=== PATIENT | female | born 1995 ===

== ENCOUNTER 2016-11-09 22:48 | Emergency (ER) | payer MEDICAID ==
[2016-11-09 23:21] LABS: URINE COLOR BROWN
[2016-11-09 23:22] LABS: URINE BILIRUBIN SMALL (NEGATIVE); URINE BLOOD LARGE (NEGATIVE); URINE GLUCOSE (UA) NEGATIVE (NEGATIVE); URINE KETONE TRACE mg/dL (NEGATIVE); URINE PH 5.5; URINE PROTEIN >300 mg/dL (NEGATIVE)
[2016-11-09 23:23] LABS: URINE BACTERIA MODERATE /hpf (NONE SEEN); URINE EPITHELIAL CELLS FEW /lpf (FEW); URINE RBC >100 /hpf (0-5)
--- NOTE | 2016-11-09 23:39 | ED Physician Chart ---
Chief Complaint/HPI - Patient Information Date Seen:: 11/09/16 Time Seen:: 23:03 Chief Complaint:: HEMATURIA History of Present Illness:: THIS IS A 20 YO FEMALE WITH BLOODY URINE AND NOT SURE THAT SHE IS NOT . SHE STATES THAT SHE HAS PELVIC WHENEVER SHE URINATES. SHE DENIES FEVER, VOMITING AND DIARRHEA. SHE DENIES ALL OTHER MEDICAL PROBLEMS. SHE DENIES ANY PREVIOUS AND SURGERIES. Allergies:: Allergies Allergy/AdvReac Type Severity Reaction Status Date / Time No Known Allergies Allergy Verified 11/09/16 23:00 Vitals:: Vital Signs - 8 hr 11/09/16 23:00 Temp 98.1 F HR 98 RR 18 BP 110/70 O2 Sat % 99 Historian:: Patient Review:: Nurse's Note Reviewed Review of Systems - Review of Systems General/Constitutional: No fever, No chills, No weight loss, No weakness, No diaphoresis, No edema, No loss of appetite Skin: No skin lesions, No rash, No bruising Head: No headache, No light-headedness Eyes: No loss of vision, No pain, No diplopia ENT: No earache, No nasal drainage, No sore throat, No tinnitus Neck: No neck pain, No swelling, No thyromegaly, No stiffness, No mass noted Cardio Vascular: No chest pain, No palpitations, No PND, No orthopnea, No edema Pulmonary: No SOB, No cough, No sputum, No wheezing GI: No nausea, No vomiting, No diarrhea, No pain, No melena, No hematochezia, No constipation, No hematemesis G/U: No dysuria, No frequency, Hematuria Recreation Instructor: Other (PELVIC PAIN) Musculoskeletal: No bone or joint pain, No back pain, No muscle pain Endocrine: No polyuria, No polydipsia Psychiatric: No prior psych history, No depression, No anxiety, No suicidal ideation Hematopoietic: No bruising, No lymphadenopathy Allergic/Immuno: No urticaria, No angioedema Neurological: No syncope, No focal symptoms, No weakness, No paresthesia, No headache, No seizure, No dizziness, No confusion, No vertigo Past Medical History - Past Medical History Obtainable: Yes Past Medical History: Asthma/COPD Family History: None Social History: Non Smoker, No Alcohol, No Drug Use Surgical History: None Psychiatricy History: None Medication: Reviewed Family Medical History - Family Member Mother History Unknown: Yes Ethnicity: Physical Exam - Physical Examination General/Constitutional: Awake, Well-developed, well-nourished, Alert, No distress, GCS 15, Non-toxic appearing, Ambulatory Head: Atraumatic Eyes: Lids, conjuctiva normal, PERRL, EOMI Skin: Nl inspection, No rash, No skin lesions, No ecchymosis, Well hydrated, No lymphadenopathy ENMT: External ears, nose nl, Nasal exam nl, Lips, teeth, gums nl Neck: Nontender, Full ROM w/o pain, No JVD, No nuchal rigidity, No bruit, No mass, No stridor Respiratory: Nl effort/Exclusion, Clear to Auscultation, No Wheeze/Rhonchi/Rales Cardio Vascular: RRR, No murmur, gallop, rubs, NL S1 S2 GI: No tenderness/rebounding/guarding, No organomegaly, No hernia, Normal BS's, Nondistended, No mass/bruits, No McBurney tenderness : No CVA tenderness Other comments:: PELVIC AREA TENDERNESS Extremities: No tenderness or effusion, Full ROM, normal strength in all extremities, No edema, Normal digits & nails Neuro/Psych: Alert/oriented, DTR's symmetric, Normal sensory exam, Normal motor strength, Judgement/insight normal, Mood normal, Normal gait, No focal deficits Misc: normal gait, Normal back, No paraspinal tenderness Labs/Radiology/EKG Results - Lab Results Results: Laboratory Tests 11/09/16 11/09/16 23:00 23:00 Urine Source [place] Urine Color BROWN Urine Clarity CLOUDY H Urine pH 5.5 Ur Specific Doyle Urine Protein >300 H Urine Glucose (UA) NEGATIVE Urine Ketones TRACE Urine Blood LARGE H Urine Nitrate POSITIVE H Urine Bilirubin SMALL H Urine Urobilinogen 1.0 Ur Leukocyte Esterase NEGATIVE Urine RBC >100 H Urine WBC 2-5 Ur Epithelial Cells FEW Urine Bacteria MODERATE Urine Test NEGATIVE ED Septic Shock - . Is Septic Shock (SBP<90, OR Lactate>4 mmol\L) present?: No - <6hrs of presentation: Vital Signs: Vital Signs - 8 hr 11/09/16 23:00 Temp 98.1 F HR 98 RR 18 BP 110/70 O2 Sat % 99 Reassessment (Disposition) - Reassessment Reassessment Condition:: Unchanged - Diagnosis Diagnosis:: HEMATURIA - Patient Disposition Discharge/Transfer:: Home Condition at Disposition:: Unchanged ED Discharge Plan - Patient Disposition Admit/Discharge/Transfer: PT DISCHARGED HOME Condition at Disposition: Unchanged
== END 2016-11-09 23:45 | disposition home or self-care (01) ==
LOC: ER 22:48
DX: R31.9 Hematuria, unspecified (principal); J45.909 Unspecified asthma, uncomplicated; J44.9 Chronic obstructive pulmonary disease, unspecified
CPT/HCPCS: 81001-TC; 81025-TC; Z7502